=== PATIENT | male | born 1935 | race American Indian/Alaskan Native ===

== ENCOUNTER 2016-11-10 05:49 | Emergency (ER) | payer MEDICARE ==
[2016-11-10 06:51] LABS: Eosinophils % (Auto) 6.6 % (0.0-4.3); Hematocrit 37.9 % (35.5-45.6); Hemoglobin 12.3 gm/dl (11.8-15.2); Mean Corpuscular HGB Conc 33 % (32-34); Mean Corpuscular Hemoglobin 29 pg (28-32); Mean Corpuscular Volume 89 fl (84-94); Platelet Count 240 K/mm3 (140-440); Red Blood Count 4.25 M/mm3 (3.65-5.03); White Blood Count 6.2 K/mm3 (4.5-11.0)
[2016-11-10 07:13] LABS: Albumin 3.7 g/dL (3.9-5); Albumin/Globulin Ratio 1.1 %; BUN/Creatinine Ratio 11.87; Bilirubin,Total 0.3 mg/dL (0.1-1.2); Calcium 9.1 mg/dL (8.4-10.2); Chloride 105.3 mmol/L (98-107); Potassium 3.9 mmol/L (3.6-5.0); Total Protein 7.1 g/dL (6.3-8.2)
--- NOTE | 2016-11-10 07:35 | XRay Report ---
CHEST 2 VIEWS INDICATION: Cough, fever for 4 days with abdominal pain. COMPARISON: 06/01/2014 FINDINGS: PA and lateral chest radiographs demonstrate normal cardiomediastinal silhouette. Clear lungs. Osteopenia possible. Various bony degenerative changes. CONCLUSION: No acute disease, stable. Thank you for the opportunity to participate in this patient's care.
[2016-11-10] MEDS ORDERED: TYLENOL #3 PO ONE (10:05)
[2016-11-10] MEDS ORDERED: PROVENTIL IH ONE (10:05)
[2016-11-10] MEDS ORDERED: BENTYL IM ONE (10:05)
--- NOTE | 2016-11-10 10:06 | Emergency Department Report ---
ED General Adult HPI - General Chief complaint: Abdominal Pain Stated complaint: COUGH Time Seen by Provider: 11/10/16 09:52 Source: patient, RN notes reviewed, old records reviewed Mode of arrival: Ambulatory Limitations: No Limitations - History of Present Illness Initial comments: This is a 81-year-old male. He is previously unknown to me. Has a past medical history of renal insufficiency. The patient presents to the ER complaining of cough and mucus production. No fevers or chills. No chest pain or shortness of breath. The patient reports that he is coughing so much that he feels like he is told to abdominal wall muscle. He reports that he has chronic pain in his back and knee secondary to multiple orthopedic issues, and he takes chronic hydrocodone. He reports feeling constipated, he has no irritative or obstructive urinary symptoms. He reports subjective fever. To me he denies chest pain. He denies leg pain. Leg swelling. No recent trips greater than 4 hours. No recent hospital admissions. His abdominal pain increases with palpation and with coughing. It decreases with rest. It does not radiate anywhere. His cough is no exacerbating or relieving factors. -: Gradual Location: abdomen Quality: aching Improves with: rest Worsens with: movement Associated Symptoms: cough - Related Data Home Medications Medication Instructions Recorded Confirmed Last Taken amLODIPine [Norvasc] 10 mg PO DAILY 09/06/15 11/10/16 11/09/16 Atenolol [Tenormin] 25 mg PO DAILY 11/10/16 11/10/16 11/09/16 Previous Rx's Medication Instructions Recorded Last Taken Type Benzonatate [Tessalon Perles] 100 mg PO Q8HR PRN #30 capsule 11/10/16 Unknown Rx Dicyclomine [Bentyl] 10 mg PO QID PRN #20 capsule 11/10/16 Unknown Rx Fluticasone [Flonase] 1 spray NS QDAY #1 bottle 11/10/16 Unknown Rx Ipratropium [place] [Atrovent Hfa] 12.9 gm IH Q4HR #2 [email or web address] 11/10/16 Unknown Rx Allergies Allergy/AdvReac Type Severity Reaction Status Date / Time No Known Allergies Allergy Unverified 08/07/13 09:30 ED Review of Systems ROS: Stated complaint: COUGH Other details as noted in HPI ED Past Medical Hx - Past Medical History Previous Medical History?: Yes Hx Hypertension: Yes Hx Renal Disease: Yes Hx Arthritis: Yes - Surgical History Past Surgical History?: Yes Additional Surgical History: right knee replacement, left hip replacement, hernia repair - Social History Smoking Status: Never Smoker Substance Use Type: None - Medications Home Medications: Home Medications Medication Instructions Recorded Confirmed Last Taken Type amLODIPine [Norvasc] 10 mg PO DAILY 09/06/15 11/10/16 11/09/16 History Atenolol [Tenormin] 25 mg PO DAILY 11/10/16 11/10/16 11/09/16 History Benzonatate [Tessalon Perles] 100 mg PO Q8HR PRN #30 capsule 11/10/16 Unknown Rx Dicyclomine [Bentyl] 10 mg PO QID PRN #20 capsule 11/10/16 Unknown Rx Fluticasone [Flonase] 1 spray NS QDAY #1 bottle 11/10/16 Unknown Rx Ipratropium [place] [Atrovent Hfa] 12.9 gm IH Q4HR #2 [email or web address] 11/10/16 Unknown Rx ED Physical Exam - General Limitations: No Limitations General appearance: alert, in no apparent distress - Head Head exam: Present: atraumatic, normocephalic - Eye Eye exam: Present: normal appearance, EOMI. Absent: nystagmus - ENT ENT exam: Present: normal exam, normal orophraynx, mucous membranes moist, normal external ear exam - Neck Neck exam: Present: normal inspection, full ROM. Absent: tenderness, meningismus - Respiratory Respiratory exam: Present: normal lung sounds bilaterally. Absent: respiratory distress, wheezes, rales, rhonchi, stridor, chest wall tenderness, accessory muscle use, decreased breath sounds, prolonged expiratory - Cardiovascular Cardiovascular Exam: Present: regular rate, normal rhythm, normal heart sounds. Absent: bradycardia, tachycardia, irregular rhythm, systolic murmur, diastolic murmur, rubs, gallop - GI/Abdominal GI/Abdominal exam: Present: soft, normal bowel sounds. Absent: distended, tenderness, guarding, rebound, rigid, pulsatile mass - Rectal Rectal exam: Present: deferred - Extremities Exam Extremities exam: Present: normal inspection, full ROM, normal capillary refill. Absent: calf tenderness - Back Exam Back exam: Present: normal inspection, full ROM. Absent: tenderness, CVA tenderness (R), CVA tenderness (L), muscle spasm, paraspinal tenderness, vertebral tenderness - Neurological Exam Neurological exam: Present: alert, oriented X3, normal gait, other (Extraocular movements intact. Tongue midline. No facial droop. Facial sensation intact to light touch in the V1, V2, V3 distribution bilaterally. 5 and 5 strength in 4 extremities.. Sensation is intact to light touch in 4 extremities.). Absent : motor sensory deficit - Psychiatric Psychiatric exam: Present: normal affect, normal mood - Skin Skin exam: Present: warm, dry, intact, normal color. Absent: rash ED Course Vital Signs 11/10/16 11/10/16 11/10/16 06:13 09:44 09:50 Temperature 98.4 F Pulse Rate 67 75 Pulse Rate [ Anterior Right Throughout] Respiratory 16 19 18 Rate Respiratory Rate [Anterior Right Throughout] Blood Pressure 175/102 O2 Sat by Pulse 99 99 Oximetry 11/10/16 11/10/16 11/10/16 09:51 10:01 10:21 Temperature Pulse Rate 76 67 78 Pulse Rate [ Anterior Right Throughout] Respiratory 13 20 24 Rate Respiratory Rate [Anterior Right Throughout] Blood Pressure 152/68 159/87 152/68 O2 Sat by Pulse 99 100 98 Oximetry 11/10/16 11/10/16 11/10/16 10:31 10:41 10:51 Temperature Pulse Rate 72 69 70 Pulse Rate [ Anterior Right Throughout] Respiratory 16 20 21 Rate Respiratory Rate [Anterior Right Throughout] Blood Pressure 152/68 152/68 159/87 O2 Sat by Pulse 99 98 99 Oximetry 11/10/16 11/10/16 11:01 11:11 Temperature Pulse Rate 70 Pulse Rate [ 71 Anterior Right Throughout] Respiratory 21 Rate Respiratory 20 Rate [Anterior Right Throughout] Blood Pressure 150/86 O2 Sat by Pulse 100 Oximetry - Reevaluation(s) Reevaluation #1: 11/10/16 11:58 Differential diagnosis: Bronchitis, abdominal wall muscle sprain/strain, constipation, bowel obstruction assessment and plan: 81-year-old male with cough, and abdominal wall pain. The patient is afebrile with reassuring vital signs. His abdomen is soft and benign. To me he denies chest pain. There are no pulmonary embolus or DVT risk factors, he has low risk by well's criteria, his EKG is abnormal however does not demonstrate evidence of ST elevation mi He felt markedly improved symptomatically therapy, a CT scan of the abdomen and pelvis and straight in no acute disease or pathology, the patient reported improvement in his symptoms. He is suitable for discharge at this time, he will be instructed to follow-up with an outpatient primary care doctor. Return precautions were reviewed. ED Medical Decision Making - Lab Data Result diagrams: 11/10/16 06:25 11/10/16 06:25 Vital Signs 11/10/16 11/10/16 11/10/16 06:13 09:44 09:50 Temperature 98.4 F Pulse Rate 67 75 Pulse Rate [ Anterior Left Throughout] Pulse Rate [ Anterior Right Throughout] Respiratory 16 19 18 Rate Respiratory Rate [Anterior Left Throughout ] Respiratory Rate [Anterior Right Throughout] Blood Pressure 175/102 O2 Sat by Pulse 99 99 Oximetry 11/10/16 11/10/16 11/10/16 09:51 10:01 10:21 Temperature Pulse Rate 76 67 78 Pulse Rate [ Anterior Left Throughout] Pulse Rate [ Anterior Right Throughout] Respiratory 13 20 24 Rate Respiratory Rate [Anterior Left Throughout ] Respiratory Rate [Anterior Right Throughout] Blood Pressure 152/68 159/87 152/68 O2 Sat by Pulse 99 100 98 Oximetry 11/10/16 11/10/16 11/10/16 10:31 10:41 10:51 Temperature Pulse Rate 72 69 70 Pulse Rate [ Anterior Left Throughout] Pulse Rate [ Anterior Right Throughout] Respiratory 16 20 21 Rate Respiratory Rate [Anterior Left Throughout ] Respiratory Rate [Anterior Right Throughout] Blood Pressure 152/68 152/68 159/87 O2 Sat by Pulse 99 98 99 Oximetry 11/10/16 11/10/16 11/10/16 11:01 11:11 11:51 Temperature Pulse Rate 70 Pulse Rate [ 92 H Anterior Left Throughout] Pulse Rate [ 71 Anterior Right Throughout] Respiratory 21 Rate Respiratory 17 Rate [Anterior Left Throughout ] Respiratory 20 Rate [Anterior Right Throughout] Blood Pressure 150/86 O2 Sat by Pulse 100 Oximetry Lab Results 11/10/16 11/10/16 11/10/16 Range/Units 06:25 06:25 09:46 WBC 6.2 (4.5-11.0) K/mm3 RBC 4.25 (3.65-5.03) M/mm3 Hgb 12.3 (11.8-15.2) gm/dl Hct 37.9 (35.5-45.6) % MCV 89 (84-94) fl MCH 29 (28-32) pg MCHC 33 (32-34) % RDW 13.0 L (13.2-15.2) % Plt Count 240 (140-440) K/mm3 Lymph % (Auto) 30.4 (13.4-35.0) % Sanders % (Auto) 8.8 H (0.0-7.3) % Eos % (Auto) 6.6 H (0.0-4.3) % Baso % (Auto) 1.0 (0.0-1.8) % Lymph # 1.9 (1.2-5.4) K/mm3 Sanders # 0.5 (0.0-0.8) K/mm3 Eos # 0.4 (0.0-0.4) K/mm3 Baso # 0.1 (0.0-0.1) K/mm3 Seg Neutrophils % 53.2 (40.0-70.0) % Seg Neutrophils # 3.3 (1.8-7.7) K/mm3 Sodium 142 (137-145) mmol/L Potassium 3.9 (3.6-5.0) mmol/L Chloride 105.3 (98-107) mmol/L Carbon Dioxide 22 (22-30) mmol/L Anion Gap 19 mmol/L BUN 19 (9-20) mg/dL Creatinine 1.6 H (0.8-1.5) mg/dL Estimated GFR 51 ml/min BUN/Creatinine Ratio 11.87 % Glucose 103 H (75-100) mg/dL Calcium 9.1 (8.4-10.2) mg/dL Total Bilirubin 0.3 (0.1-1.2) mg/dL AST 18 (5-40) units/L ALT 11 (7-56) units/L Alkaline Phosphatase 98 (35-129) units/L Total Protein 7.1 (6.3-8.2) g/dL Albumin 3.7 L (3.9-5) g/dL Albumin/Globulin Ratio 1.1 % Urine Color Yellow (Yellow) Urine Turbidity Clear (Clear) Urine pH 5.0 (5.0-7.0) Ur Specific [place] 1.014 (1.003-1.030) Urine Protein <15 mg/dl (Negative) mg/dL Urine Glucose (UA) Neg (Negative) mg/dL Urine Ketones Neg (Negative) mg/dL Urine Blood Sm (Negative) Urine Nitrite Neg (Negative) Urine Bilirubin Neg (Negative) Urine Urobilinogen < 2.0 (<2.0) mg/dL Ur Leukocyte Esterase Neg (Negative) Urine WBC (Auto) < 1.0 (0.0-6.0) /HPF Urine RBC (Auto) 3.0 (0.0-6.0) /HPF Urine Bacteria (Auto) 1+ (Negative) /HPF Urine Mucus Few /HPF Renal insufficiency is chronic - EKG Data 11/10/16 12:00 Sinus arrhythmia, sinus, 70 bpm, first-degree AV block, intraventricular contractions and a pattern of bigeminy, QTC 454 ms, not consistent with STEMI, morphologically unchanged from prior EKG, bigeminy appears to be new. - Radiology Data Radiology results: report reviewed, image reviewed X-ray of the chest negative. Noncontrast CT the abdomen and pelvis negative for acute disease, DJD is noted, multiple incidental findings noted. Critical care attestation.: If time is entered above; I have spent that time in minutes in the direct care of this critically ill patient, excluding procedure time. ED Disposition Clinical Impression: Cough Disposition: DISCHARGED TO HOME OR SELFCARE Is pt being admited?: No Does the pt Need Aspirin: No Condition: Stable Instructions: Acute Bronchitis (ED) Additional Instructions: Take the medications as directed. Discontinue consumption of your narcotic medication. Discontinue consumption of NSAIDs/Mobic/Aleve/ibuprofen, unless your primary care doctor or nephrology specialist specifically instructed you that it is safe to do so. Take acetaminophen every 4-6 hours as needed for pain. Follow-up with your primary care doctor within the next week. Please note that CT scan demonstrated multiple incidental findings which are not emergent, but should be followed up by your primary care doctor. There is a nonspecific nodule noted on the right adrenal gland which should be followed up by her primary care doctor. Please have your primary care doctor contact the medical records department to obtain a copy of her CT scan report. Not having a primary care doctor follow-up on these incidental findings may result in undiagnosed tumor/cancer/malignancy. Take the pain medication, nausea medication, cough medication as directed. Return to the ER right away with new pain, worsened pain, migration of pain, fevers or chills, nausea or vomiting, inability to tolerate liquid feeds. Referrals: PRIMARY CARE, [Primary Care Provider] - 3-5 Days YAN RUANO MD [Staff Physician] - 3-5 Days ALEXIS ACE MD [Staff Physician] - 3-5 Days
[2016-11-10 10:14] LABS: Bacteria,Urine 1+ /HPF (Negative); Bilirubin,Urine NEG (Negative); Blood,Urine SM (Negative); Ketones,Urine NEG (Negative); Leukocyte Esterase,Urine NEG (Negative); Mucus,Urine FEW /HPF; Nitrite,Urine NEG (Negative); Protein,Urine <15 mg/dL mg/dL (Negative); Urobilinogen,Urine < 2.0 mg/dL (<2.0)
[2016-11-10 10:15] LABS: WBC,Urine < 1.0 /HPF (0.0-6.0)
--- NOTE | 2016-11-10 11:41 | Cat Scan Report ---
CT ABDOMEN AND PELVIS WITHOUT CONTRAST INDICATION: Abdominal pain, cough. COMPARISON: 02/07/2012 FINDINGS: Noncontrast abdomen and pelvis CT performed. LUNG BASES: Top normal heart size. Few coronary calcifications. No effusions. Approximately 3 cm hiatal hernia and/or gastroesophageal reflux, amongst others. ABDOMEN: Please note that sensitivity to detect small visceral lesions is limited due to the absence of intravenous or oral contrast. Approximately 7 mm stable left hepatic dome hypodensity, axial image 7, series 2. Multiple bilateral renal hypodensities/cysts, largest 4.6 cm at the left lower renal pole with mild overlying fatty cortical indentation, axial image 37, series 2. Some of these are stable while few others as in the upper to mid renal aspects bilaterally may be new or larger. Otherwise grossly unremarkable unenhanced liver, spleen, gallbladder, pancreas, left adrenal, nonaneurysmal abdominal aorta with mild atherosclerotic calcifications, IVC and kidneys. Approximately 1 cm right adrenal fullness/nodule may again be present. No ascites or definite size significant adenopathy. Nonopacified GI tract evaluation limited, though grossly nonobstructive. Mild ascending and transverse colon stool. PELVIS: Streak artifact from replaced left hip again limits exam. Few pelvic vascular calcifications. Grossly unremarkable non-opacified urinary bladder and the rectosigmoid. Tiny prostatic calcification. No significant free fluid. Stable prior possible right inguinal surgery. Largest right inguinal lymph node again measures 3 x 1 cm, axial image 74. Increased lumbar spondylosis with multilevel vacuum disc phenomena, greatest change seen at L3-L4 with severe disc narrowing and adjacent endplate irregularity. Severe L4-L5 disc narrowing with vacuum phenomenon again noted. Mild remainder upper lumbar and some lower thoracic vacuum disc changes as well. Bilateral SI joint degenerative bridging. CONCLUSION: 1. Interval progression of multilevel lumbar spondylosis, as described. 2. No other significant interval change on this limited, unenhanced exam with various incidental findings, including distal esophageal thickening, renal cysts and replaced left hip, amongst others, as above. Thank you for the opportunity to participate in this patient's care.
[2016-11-10 12:19] VITALS: BP 146/78
== END 2016-11-10 12:18 | disposition home or self-care (01) ==
LOC: ED 05:49
DX: R05 Cough (principal); I10 Essential (primary) hypertension; M19.90 Unspecified osteoarthritis, unspecified site
CPT/HCPCS: 36415; 71020; 74176; 80053; 81001; 85025; 93005; 93010; 94644; 96372; 99285; J0500

== ENCOUNTER 2017-08-07 02:33 | Emergency (ER) | payer MEDICARE ==
[2017-08-07 02:44] VITALS: BP 142/82
[2017-08-07 05:10] LABS: Basophils # (Auto) 0.1 K/mm3 (0.0-0.1); Basophils % (Auto) 1.1 % (0.0-1.8); Eosinophils # (Auto) 0.6 K/mm3 (0.0-0.4); Eosinophils % (Auto) 8.6 % (0.0-4.3); Hematocrit 39.1 % (35.5-45.6); Hemoglobin 12.9 gm/dl (11.8-15.2); Lymphocytes # (Auto) 1.7 K/mm3 (1.2-5.4); Lymphocytes % (Auto) 23.5 % (13.4-35.0); Mean Corpuscular HGB Conc 33 % (32-34); Mean Corpuscular Hemoglobin 30 pg (28-32); Mean Corpuscular Volume 90 fl (84-94); Monocytes # (Auto) 0.6 K/mm3 (0.0-0.8); Monocytes % (Auto) 7.8 % (0.0-7.3); Platelet Count 295 K/mm3 (140-440); Red Blood Count 4.36 M/mm3 (3.65-5.03); Red Cell Distribution Width 14.3 % (13.2-15.2)
[2017-08-07 07:09] LABS: BUN/Creatinine Ratio 14; Blood Urea Nitrogen 18 mg/dL (9-20); Calcium 8.9 mg/dL (8.4-10.2); Hemolysis Index 23
== END 2017-08-07 14:15 | disposition left against medical advice (07) ==
LOC: ED 02:33
DX: R42 Dizziness and giddiness (principal); Z53.21 Procedure and treatment not carried out due to patient leaving prior to being seen by health care provider
CPT/HCPCS: 36415; 80048; 85025; 93005; 93010

== ENCOUNTER 2017-08-13 23:46 | Emergency (ER) | payer MEDICARE ==
[2017-08-14] MEDS ORDERED: ASPIRIN PO ONE (02:04)
[2017-08-14 03:36] LABS: Basophils # (Auto) 0.1 K/mm3 (0.0-0.1); Basophils % (Auto) 1.4 % (0.0-1.8); Eosinophils # (Auto) 0.6 K/mm3 (0.0-0.4); Eosinophils % (Auto) 7.3 % (0.0-4.3); Hematocrit 38.4 % (35.5-45.6); Hemoglobin 12.5 gm/dl (11.8-15.2); Lymphocytes # (Auto) 1.9 K/mm3 (1.2-5.4); Lymphocytes % (Auto) 23.4 % (13.4-35.0); Mean Corpuscular HGB Conc 33 % (32-34); Mean Corpuscular Hemoglobin 30 pg (28-32); Mean Corpuscular Volume 91 fl (84-94); Monocytes # (Auto) 0.5 K/mm3 (0.0-0.8); Monocytes % (Auto) 6.9 % (0.0-7.3); Platelet Count 260 K/mm3 (140-440); Red Blood Count 4.22 M/mm3 (3.65-5.03); Red Cell Distribution Width 14.5 % (13.2-15.2)
[2017-08-14 03:50] LABS: INR 1.01 (0.87-1.13)
[2017-08-14 03:51] LABS: Partial Thromboplastin Time 32.6 Sec. (24.2-36.6)
[2017-08-14 03:51] LABS: BUN/Creatinine Ratio 17; Blood Urea Nitrogen 19 mg/dL (9-20); Calcium 8.8 mg/dL (8.4-10.2); Hemolysis Index 8
--- NOTE | 2017-08-14 03:52 | Emergency Department Report ---
HPI - General Chief Complaint: Dizziness Time Seen by Provider: 08/14/17 03:04 - HPI HPI: This is a 82-year-old male presents to the emergency department by EMS from home with a complaint of some dizziness. He says that he has been having it intermittently over the past few weeks. He denies that the room is spinning or any vertigo like symptoms but says it feels as if he is unbalanced and would fall. He has not taken anything for his symptoms prior presentation. He denies any headache, vision change, shortness of breath, nausea, vomiting or fever. He has a past medical history of arthritis, CHF, hypertension, renal sufficiency and has a previous history of pulmonary embolism back in 2013. He has a surgical history of right knee replacement, left hip replacement and hernia repair. His primary care physician is Dr. Chang Murguia but he has not seen them regarding his symptoms. No recent travel or sick contacts at home. ED Past Medical Hx - Past Medical History Previous Medical History?: Yes Hx Hypertension: Yes Hx Congestive Heart Failure: Yes Hx Pulmonary Embolism: Yes Hx Renal Disease: Yes Hx Arthritis: Yes - Surgical History Past Surgical History?: Yes Additional Surgical History: right knee replacement, left hip replacement, hernia repair - Social History Smoking Status: Never Smoker Substance Use Type: None - Medications Home Medications: Home Medications Medication Instructions Recorded Confirmed Last Taken Type Atenolol [Tenormin] 25 mg PO DAILY #30 tablet 07/25/17 08/07/17 Unknown Rx Atorvastatin [Lipitor] 40 mg PO QHS #30 tablet 07/25/17 08/07/17 Unknown Rx amLODIPine [Norvasc] 10 mg PO DAILY #30 tablet 07/25/17 08/07/17 Unknown Rx Furosemide [Lasix TAB] 20 mg PO QDAY 08/07/17 08/07/17 Unknown History ED Review of Systems ROS: Stated complaint: DIZZINESS Other details as noted in HPI Comment: All other systems reviewed and negative Constitutional: denies: chills, fever Eyes: denies: eye pain, eye discharge, vision change ENT: denies: ear pain, throat pain Respiratory: denies: cough, shortness of breath, wheezing Cardiovascular: denies: chest pain, palpitations Gastrointestinal: denies: abdominal pain, nausea, diarrhea Genitourinary: denies: urgency, dysuria Musculoskeletal: denies: back pain, joint swelling, arthralgia Skin: denies: rash, lesions Neurological: other (dizziness). denies: headache Physical Exam - Physical Exam Physical Exam: GENERAL: The patient is well-developed well-nourished. HENT: Normocephalic. Atraumatic. Patient has moist mucous membranes. EYES: Extraocular motions are intact. Pupils equal reactive to light bilaterally. No nystagmus. NECK: Supple. Trachea is midline. CHEST/LUNGS: Clear to auscultation. There is no respiratory distress noted. HEART/CARDIOVASCULAR: Regular. There is no tachycardia. There is no murmur. ABDOMEN: Abdomen is soft, nontender. Patient has normal bowel sounds. There is no abdominal distention. SKIN: Skin is warm and dry. NEURO: The patient is awake, alert, and oriented. The patient is cooperative. The patient has no focal neurologic deficits. The patient has normal speech and gait. Cranial nerves II through XII grossly intact. No pronator drift. No dysmetria. MUSCULOSKELETAL: There is no tenderness or deformity. There is no limitation range of motion. There is no evidence of acute injury. Muscle strength 5 out of 5 in upper and lower extremity bilaterally. ED Medical Decision Making - Lab Data Result diagrams: 08/14/17 03:06 08/14/17 03:06 - EKG Data -: EKG Interpreted by Nm EKG shows normal: sinus rhythm (with ventricular bigeminy), axis, intervals ( prolonged TN interval), QRS complexes, ST-T waves Rate: normal - EKG Data When compared to previous EKG there are: changes noted (previous EKG did not have ventricular bigeminy or prolonged TN interval) Interpretation: other (sinus rhythm, ventricular bigeminy, prolonged TN interval. No ST elevation AR) - Radiology Data Radiology results: report reviewed EXAM: CT HEAD/BRAIN WO CON HISTORY: Dizziness TECHNIQUE: Routine axial imaging was obtained of the brain without IV contrast. There are no previous studies available for comparison FINDINGS: There is age related volume loss. There are small bilateral chronic subdural effusions overlying the frontal lobes without mass effect. There is no evidence of acute stroke or hemorrhage. The ventricular system is appropriate in size and is symmetric. The visualized sinuses are clear. 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 No evidence of acute stroke or hemorrhage. Transcribed By: DEWAYNE Dictated By: LORENZO ROMERO MD Electronically Authenticated By: LORENZO ROMERO MD Signed Date/Time: 08/13/17 9139 - Medical Decision Making Patient presents with a complaint of some dizziness that has been going on intermittently but chronically, for at least the past month or so. On physical examination he does not have any focal, motor or sensory deficits and his cranial nerves are intact. Labs and an unremarkable including no leukocytosis, electrolyte abnormalities, renal insufficiency, glucose abnormalities and he had a negative troponin and normal thyroid function. His EKG did not show any signs of ST elevation AR, ischemia or significant dysrhythmia. There was some ventricular bigeminy. There was a prolonged TN interval but the patient does not have any bradycardia. CT of the head showed some age-related volume loss with some chronic bifrontal subdural effusions without mass effect but no evidence of acute stroke or hemorrhage. We tested the patient's ambulation multiple times and the patient walks without any instability and it does not cause any dizziness. Patient was reevaluated multiple times and currently is asymptomatic. He has good follow-up with his primary care physician, Dr. Murguia. He has been encouraged to follow up with them in the next few days without fail but to return to the emergency Department with any worsening of his symptoms or any acute distress. Vital signs stable including being afebrile. He understands and agrees to the plan. - Differential Diagnosis vertigo, dysrhythmia, thyroid dysfunction, TIA Critical Care Time: No Critical care attestation.: If time is entered above; I have spent that time in minutes in the direct care of this critically ill patient, excluding procedure time. ED Disposition Clinical Impression: Dizziness Hypertension Qualifiers: Hypertension type: essential hypertension Qualified Code(s): I10 - Essential ( primary) hypertension Disposition: DC-01 TO HOME OR SELFCARE Is pt being admited?: No Condition: Stable Instructions: Hypertension (ED), Lightheadedness (ED), Dizziness (ED) Additional Instructions: Please follow up with Dr. Murguia in the next few days. Return to the emergency Department with any worsening of your symptoms or any acute distress. Referrals: CHANG MURGUIA MD [Staff Physician] - [facility] Time of Disposition: 04:50
[2017-08-14 05:10] VITALS: BP 152/86
== END 2017-08-14 05:05 | disposition home or self-care (01) ==
LOC: ED 23:46
DX: R42 Dizziness and giddiness (principal); I10 Essential (primary) hypertension; I50.9 Heart failure, unspecified; M19.90 Unspecified osteoarthritis, unspecified site; I26.99 Other pulmonary embolism without acute cor pulmonale
CPT/HCPCS: 36415; 70450; 80048; 84443; 84484; 85025; 85610; 85730; 93005; 93010

== ENCOUNTER 2017-10-22 19:59 | Emergency (ER) | payer MEDICARE ==
[2017-10-22 20:39] LABS: Hematocrit 38.4 % (35.5-45.6); Hemoglobin 12.1 gm/dl (11.8-15.2); Mean Corpuscular HGB Conc 32 % (32-34); Mean Corpuscular Hemoglobin 29 pg (28-32); Mean Corpuscular Volume 91 fl (84-94); Platelet Count 300 K/mm3 (140-440); Red Blood Count 4.24 M/mm3 (3.65-5.03); Red Cell Distribution Width 15.3 % (13.2-15.2)
[2017-10-22 21:01] LABS: Albumin 3.9 g/dL (3.9-5)
[2017-10-22 21:24] LABS: Bilirubin,Urine NEG (Negative); Blood,Urine SM (Negative); Color,Urine Yellow (Yellow); Mucus,Urine FEW /HPF; Protein,Urine <15 mg/dL mg/dL (Negative); Urobilinogen,Urine < 2.0 mg/dL (<2.0)
[2017-10-22 21:33] LABS: WBC,Urine < 1.0 /HPF (0.0-6.0)
[2017-10-23] MEDS ORDERED: LASIX PO ONE (03:08)
[2017-10-23] MEDS ORDERED: ULTRAM PO ONE (03:51)
--- NOTE | 2017-10-23 03:55 | Emergency Department Report ---
HPI - General Chief Complaint: Extremity Injury, Lower Time Seen by Provider: 10/23/17 03:31 - HPI HPI: The patient is a 82-year-old male with a history of congestive heart failure because of the lower leg swelling and pain, presents for evaluation recurrence of pain and swelling to the bilateral lower legs. The patient reports one month of constant swelling and pain to the legs distal legs diffusely, moderate in severity, pressure-like in quality, exacerbated with ambulation or weightbearing. He shares that he did not follow-up with cardiology outpatient. The patient denies fever, neck pain, parasthesias, chest pain, dyspnea, cough, hemoptysis, palpitations, dizziness, syncope, unilateral leg swelling, calf muscle pain recent immobilization. ED Past Medical Hx - Past Medical History Hx Hypertension: Yes Hx Congestive Heart Failure: Yes Hx Pulmonary Embolism: Yes Hx Renal Disease: Yes Hx Arthritis: Yes - Surgical History Additional Surgical History: right knee replacement, left hip replacement, hernia repair - Social History Smoking Status: Unknown if ever smoked Substance Use Type: None - Medications Home Medications: Home Medications Medication Instructions Recorded Confirmed Last Taken Type Atenolol [Tenormin] 25 mg PO DAILY #30 tablet 07/25/17 08/07/17 Unknown Rx Atorvastatin [Lipitor] 40 mg PO QHS #30 tablet 07/25/17 08/07/17 Unknown Rx amLODIPine [Norvasc] 10 mg PO DAILY #30 tablet 07/25/17 08/07/17 Unknown Rx Furosemide [Lasix TAB] 20 mg PO QDAY #30 tablet 10/23/17 Unknown Rx traMADol [Ultram 50 MG tab] 50 mg PO Q6HR PRN #12 tablet 10/23/17 Unknown Rx ED Review of Systems ROS: Stated complaint: BILATERAL LEG SWELLING Other details as noted in HPI Constitutional: denies: fever ENT: denies: throat or neck pain Respiratory: denies: cough, shortness of breath Cardiovascular: denies: chest pain Endocrine: denies unexplained weight loss or gain Gastrointestinal: denies: abdominal pain, nausea Genitourinary: denies: dysuria Musculoskeletal: reports: leg swelling and pain Skin: denies: rash Neurological: denies: headache Hematological/Lymphatic: denies: easy bleeding or easy bruising Psych: denies sadness or hopelessness Physical Exam - Physical Exam Vital Signs: Vital Signs 10/22/17 10/23/17 10/23/17 20:14 03:19 03:36 Temperature 99 F 98.9 F Pulse Rate 80 78 Respiratory 18 20 20 Rate Blood Pressure 138/71 Blood Pressure 159/85 [Left] O2 Sat by Pulse 100 99 98 Oximetry Physical Exam: General: well-nourished, well-developed, no acute distress Head: Normocephalic, atraumatic Eyes: normal sclera ENT: Mucous membranes are pink and moist Neck: trachea midline, neck supple, No neck stiffness, no cervical adenopathy Respiratory: Breath sounds equal bilaterally, no wheezing, rales, or rhonchi Cardio: S1 and S2 present, no murmurs, rubs, gallops, capillary refill is brisk Abdomen: Normoactive bowel sounds, soft tenderness Musc: 1+ pitting edema of bilateral lower legs, circumferential tenderness to palpation present bilaterally, circumferential hyperpigmentation and mild redness to the lower legs present as well, consistent with stasis dermatitis Skin: No rash Neuro: no facial drooping, normal speech Psych: Normal affect ED Course Vital Signs 10/22/17 10/23/17 10/23/17 20:14 03:19 03:36 Temperature 99 F 98.9 F Pulse Rate 80 78 Respiratory 18 20 20 Rate Blood Pressure 138/71 Blood Pressure 159/85 [Left] O2 Sat by Pulse 100 99 98 Oximetry ED Medical Decision Making - Lab Data Result diagrams: 10/22/17 20:22 10/22/17 20:22 - Medical Decision Making The patient was seen and examined by myself. The patient is placed on a surveillance system monitor and continuous pulse ox. On initial evaluation, the patient was found to be in no distress. Evaluation orders were placed. Findings of exam are consistent with stasis dermatitis. The patient given pain medicine and Lasix for treatment of leg swelling. Lab results revealed elevated BNP and otherwise were unremarkable including normal WBC. The patient was reevaluated and reported that their symptoms were markedly improved. The patient is stable for discharge with outpatient follow-up. The patient is given follow-up and return instructions. The patient expressed understanding and agreed with the plan. The patient is discharged in stable condition. Critical care attestation.: If time is entered above; I have spent that time in minutes in the direct care of this critically ill patient, excluding procedure time. ED Disposition Clinical Impression: Acute venous stasis dermatitis of both legs, Bilateral lower extremity pain, Localized swelling of both lower legs Disposition: TO HOME OR SELFCARE Is pt being admited?: No Does the pt Need Aspirin: No Condition: Stable Instructions: Leg Edema (ED), Musculoskeletal Pain (ED), Heart Failure (ED) Prescriptions: Furosemide [Lasix TAB] 20 mg PO QDAY #30 tablet traMADol [Ultram 50 MG tab] 50 mg PO Q6HR PRN #12 tablet PRN Reason: Pain Referrals: YAZ MURGUIA MD [Primary Care Provider] - 3-5 Days PAULO ZALDIVAR MD [Staff Physician] - 3-5 Days Time of Disposition: 03:51
[2017-10-23] MEDS ORDERED: TYLENOL PO ONE (04:05)
[2017-10-23 06:07] VITALS: BP 148/88
== END 2017-10-23 05:03 | disposition home or self-care (01) ==
LOC: ED 19:59
DX: R60.0 Localized edema (principal); I13.0 Hypertensive heart and chronic kidney disease with heart failure and stage 1 through stage 4 chronic kidney disease, or unspecified chronic kidney disease; N18.9 Chronic kidney disease, unspecified; M19.90 Unspecified osteoarthritis, unspecified site; Z86.711 Personal history of pulmonary embolism; Z96.651 Presence of right artificial knee joint; Z96.642 Presence of left artificial hip joint
CPT/HCPCS: 36415; 80053; 81001; 83880; 85027; 93005; 93010; 99283

== ENCOUNTER 2018-01-16 08:56 | Inpatient (IN) | payer MEDICARE ==
[2018-01-16] MEDS ORDERED: ATROVENT IH ONE ×2 (09:18→09:26)
[2018-01-16] MEDS ORDERED: PROVENTIL IH ONE ×2 (09:18→09:25)
--- NOTE | 2018-01-16 09:33 | XRay Report ---
AP CHEST: HISTORY: Difficulty in breathing AP view of the chest demonstrates a normal mediastinal and cardiac contour with clear lungs and normal bony and soft tissue structures. IMPRESSION: Unremarkable AP chest.
[2018-01-16 10:05] LABS: Creatine Kinase MB 6.4 ng/mL (0.0-4.0)
[2018-01-16 10:07] LABS: Calcium 9.2 mg/dL (8.4-10.2)
[2018-01-16 10:10] LABS: Alanine Aminotransferase 10 units/L (7-56); Albumin 3.8 g/dL (3.9-5)
[2018-01-16 10:11] LABS: Bilirubin,Direct < 0.2 mg/dL (0-0.2)
[2018-01-16 10:21] LABS: Basophils # (Auto) 0.1 K/mm3 (0.0-0.1); Basophils % (Auto) 1.1 % (0.0-1.8); Eosinophils # (Auto) 0.6 K/mm3 (0.0-0.4); Eosinophils % (Auto) 8.6 % (0.0-4.3); Hematocrit 37.8 % (35.5-45.6); Hemoglobin 12.3 gm/dl (11.8-15.2); Lymphocytes # (Auto) 1.7 K/mm3 (1.2-5.4); Lymphocytes % (Auto) 23.8 % (13.4-35.0); Mean Corpuscular HGB Conc 33 % (32-34); Mean Corpuscular Hemoglobin 30 pg (28-32); Mean Corpuscular Volume 93 fl (84-94); Monocytes # (Auto) 0.5 K/mm3 (0.0-0.8); Monocytes % (Auto) 7.3 % (0.0-7.3); Platelet Count 271 K/mm3 (140-440); Red Blood Count 4.06 M/mm3 (3.65-5.03)
[2018-01-16] MEDS ORDERED: MAGNESIUM SULFATE 2GM/50ML 2 GM/50 ML BAG IV ONE (10:25)
[2018-01-16 10:32] LABS: INR 1.05 (0.87-1.13)
[2018-01-16 10:33] LABS: Partial Thromboplastin Time 28.9 Sec. (24.2-36.6)
[2018-01-16] MEDS ORDERED: DUONEB *Not for PRN Use IH ONE ×2 (12:36→12:46)
--- NOTE | 2018-01-16 12:49 | Emergency Department Report ---
ED General Adult HPI - General Chief complaint: Dyspnea/Respdistress Stated complaint: COLD/WHEEZING Time Seen by Provider: 01/16/18 09:16 Source: patient Mode of arrival: Ambulatory Limitations: No Limitations - History of Present Illness Initial comments: This is an 82-year-old male that states he's had difficulty breathing for 2 weeks. He arrives in respiratory distress and is found to be wheezing. He states he has chronic leg swelling. He has had a nonproductive cough. He has not measured his temperature but does not refer fever or chills. He states that he has never been treated for asthma or COPD with nebulized therapy. Patient has been admitted to this facility before in July 2007. He may have had a somewhat similar presentation. He has some degree of diastolic dysfunction but no systolic decompensation. At that time he had a CTA which was read as negative except for the presence of probable chronic lung disease. A nuclear medicine study was also done at that time which was negative as well. The patient denies chest pain pressure or tightness. He's had no recent travel. -: week(s) Associated Symptoms: denies other symptoms - Related Data Previous Rx's Medication Instructions Recorded Last Taken Type Atenolol [Tenormin] 25 mg PO DAILY #30 tablet 07/25/17 Unknown Rx Atorvastatin [Lipitor] 40 mg PO QHS #30 tablet 07/25/17 Unknown Rx amLODIPine [Norvasc] 10 mg PO DAILY #30 tablet 07/25/17 Unknown Rx Furosemide [Lasix TAB] 20 mg PO QDAY #30 tablet 10/23/17 Unknown Rx traMADol [Ultram 50 MG tab] 50 mg PO Q6HR PRN #12 tablet 10/23/17 Unknown Rx Allergies Allergy/AdvReac Type Severity Reaction Status Date / Time No Known Allergies Allergy Verified 08/14/17 01:58 ED Review of Systems ROS: Stated complaint: COLD/WHEEZING Other details as noted in HPI Constitutional: denies: chills, fever Eyes: denies: eye pain, eye discharge, vision change ENT: denies: ear pain, throat pain Respiratory: see HPI, cough, shortness of breath, wheezing Cardiovascular: denies: chest pain, palpitations Endocrine: no symptoms reported Gastrointestinal: denies: abdominal pain, nausea, diarrhea Genitourinary: denies: urgency, dysuria Musculoskeletal: denies: back pain, joint swelling, arthralgia Skin: denies: rash, lesions Neurological: denies: headache, weakness, paresthesias Psychiatric: denies: anxiety, depression Hematological/Lymphatic: denies: easy bleeding, easy bruising ED Past Medical Hx - Past Medical History Hx Hypertension: Yes Hx Congestive Heart Failure: Yes Hx Pulmonary Embolism: Yes Hx Renal Disease: Yes Hx Arthritis: Yes - Surgical History Past Surgical History?: Yes Additional Surgical History: right knee replacement, left hip replacement, hernia repair - Social History Smoking Status: Never Smoker Substance Use Type: None - Medications Home Medications: Home Medications Medication Instructions Recorded Confirmed Last Taken Type Atenolol [Tenormin] 25 mg PO DAILY #30 tablet 07/25/17 08/07/17 Unknown Rx Atorvastatin [Lipitor] 40 mg PO QHS #30 tablet 07/25/17 08/07/17 Unknown Rx amLODIPine [Norvasc] 10 mg PO DAILY #30 tablet 07/25/17 08/07/17 Unknown Rx Furosemide [Lasix TAB] 20 mg PO QDAY #30 tablet 10/23/17 Unknown Rx traMADol [Ultram 50 MG tab] 50 mg PO Q6HR PRN #12 tablet 10/23/17 Unknown Rx ED Physical Exam - General Limitations: No Limitations General appearance: alert, in no apparent distress - Head Head exam: Present: atraumatic, normocephalic - Eye Eye exam: Present: normal appearance. Absent: scleral icterus - ENT ENT exam: Present: mucous membranes moist - Neck Neck exam: Present: normal inspection. Absent: tenderness, meningismus - Respiratory Respiratory exam: Present: wheezes, accessory muscle use, prolonged expiratory. Absent: respiratory distress - Cardiovascular Cardiovascular Exam: Present: regular rate, normal rhythm. Absent: systolic murmur, diastolic murmur, rubs, gallop - GI/Abdominal GI/Abdominal exam: Present: soft, normal bowel sounds. Absent: distended, tenderness, guarding, rebound, rigid - Rectal Rectal exam: Present: deferred - Extremities Exam Extremities exam: Present: pedal edema (bilateral ankle edema somewhat brawny) - Back Exam Back exam: Present: normal inspection. Absent: CVA tenderness (R), CVA tenderness (L) - Neurological Exam Neurological exam: Present: alert, oriented X3, CN II-XII intact. Absent: motor sensory deficit - Psychiatric Psychiatric exam: Present: normal affect, normal mood - Skin Skin exam: Present: warm, dry, intact, other (some postinflammatory changes of the lower extremities). Absent: rash ED Course Vital Signs 01/16/18 01/16/18 01/16/18 09:06 09:10 09:30 Temperature 97.8 F Pulse Rate 85 75 66 Respiratory 24 32 H 22 Rate Blood Pressure 130/88 125/63 O2 Sat by Pulse 97 94 96 Oximetry 01/16/18 01/16/18 01/16/18 10:00 10:30 11:01 Temperature Pulse Rate 65 58 L 73 Respiratory 25 H 23 26 H Rate Blood Pressure 130/71 113/59 132/66 O2 Sat by Pulse 94 95 93 Oximetry - Reevaluation(s) Reevaluation #1: The patient had a clear benefit from nebulized treatment, steroids and magnesium. He has a pulse oximetry of 97% on room air. He still is a bit tachypnea with wheezing. 2 do nebs were ordered. His d-dimer was noted to be over 800. His creatinine is 1.4. I have ordered a nuclear medicine study. The previous one and very was negative. 01/16/18 12:47 01/16/18 12:49 According to the patient's previous discharge summary by Dr. Shannon he has a history of pulmonary embolism but is not on anticoagulants. I do believe the patient is not compliant with all his medicine. It appears that his respiratory distress is more a function of his COPD exacerbation and diastolic dysfunction. I will leave the management of his cardiac status to the hospitalist which will be Dr. Fernandez. Further care and evaluation per hospitalist team. ED Medical Decision Making - Lab Data Result diagrams: 01/16/18 09:28 01/16/18 09:28 Laboratory Results - last 24 hr 01/16/18 01/16/18 01/16/18 09:28 09:28 09:28 WBC 7.3 RBC 4.06 Hgb 12.3 Hct 37.8 MCV 93 MCH 30 MCHC 33 RDW 15.0 Plt Count 271 Lymph % (Auto) 23.8 [place] % (Auto) 7.3 Eos % (Auto) 8.6 H Baso % (Auto) 1.1 Lymph # 1.7 Monroe # 0.5 Eos # 0.6 H Baso # 0.1 Seg Neutrophils % 59.2 Seg Neutrophils # 4.3 PT 14.2 INR 1.05 APTT 28.9 D-Dimer 827.61 H Sodium 143 Potassium 4.7 Chloride 104.9 Carbon Dioxide 23 Anion Gap 20 BUN 22 H Creatinine 1.4 Estimated GFR 59 BUN/Creatinine Ratio 16 Glucose 139 H Calcium 9.2 Magnesium Total Bilirubin Direct Bilirubin AST ALT Alkaline Phosphatase Total Creatine Kinase CK-MB (CK-2) CK-MB (CK-2) Rel Index Troponin T NT-Pro-B Natriuret Pep 630.7 Total Protein Albumin Albumin/Globulin Ratio 01/16/18 01/16/18 09:28 09:28 WBC RBC Hgb Hct MCV MCH MCHC RDW Plt Count Lymph % (Auto) Monroe % (Auto) Eos % (Auto) Baso % (Auto) Lymph # Monroe # Eos # Baso # Seg Neutrophils % Seg Neutrophils # PT INR APTT D-Dimer Sodium Potassium Chloride Carbon Dioxide Anion Gap BUN Creatinine Estimated GFR BUN/Creatinine Ratio Glucose Calcium Magnesium 2.20 Total Bilirubin 0.50 Direct Bilirubin < 0.2 AST 22 ALT 10 Alkaline Phosphatase 149 H Total Creatine Kinase 227 H CK-MB (CK-2) 6.4 H CK-MB (CK-2) Rel Index 2.8 Troponin T < 0.010 NT-Pro-B Natriuret Pep Total Protein 7.0 Albumin 3.8 L Albumin/Globulin Ratio 1.2 - EKG Data -: EKG Interpreted by Me EKG shows normal: sinus rhythm, axis, intervals, QRS complexes, ST-T waves Rate: normal - EKG Data Interpretation: nonspecific ST-T wave eryn - Radiology Data interpreted by me: Chest x-ray no acute process Critical Care Time: Yes Critical care time in (mins) excluding proc time.: 45 Critical care attestation.: If time is entered above; I have spent that time in minutes in the direct care of this critically ill patient, excluding procedure time. ED Disposition Clinical Impression: Respiratory distress, COPD exacerbation, Diastolic dysfunction, Elevated d- dimer Chronic renal insufficiency Qualifiers: Chronic kidney disease stage: stage 1 Qualified Code(s): N28.9 - Disorder of kidney and ureter, unspecified Disposition: OP ADMIT IP TO THIS HOSP Is pt being admited?: Yes Does the pt Need Aspirin: Yes Condition: Stable Instructions: Chronic Obstructive Pulmonary Disease (ED) Referrals: PRIMARY CARE, [Primary Care Provider] - 3-5 Days Time of Disposition: 12:52
[2018-01-16] MEDS ORDERED: BABY ASPIRIN PO ONE (12:53)
[2018-01-16] MEDS ORDERED: ROBITUSSIN AC PO PRN (13:12)
[2018-01-16] MEDS ORDERED: REGLAN IV PRN (13:13)
[2018-01-16] MEDS ORDERED: TYLENOL PO PRN (13:13)
[2018-01-16] MEDS ORDERED: PULMICORT IH ONE (13:14)
[2018-01-16] MEDS ORDERED: MUCINEX ER PO ONE (13:22)
[2018-01-16] MEDS ORDERED: BABY ASPIRIN ONE (13:22)
--- NOTE | 2018-01-16 13:26 | History and Physical Report ---
History of Present Illness Date of examination: 01/16/18 Chief complaint: SOB History of present illness: Mr. Johnson is a 82 yo man with a history of hypertension, OA, asthma, radiographic (on prior v/q scan) COPD (pt denies copd and he says smoked), CKD 3 baseline around 1.4 and provoked PE after surgery treated with Xarelto who presents with progressive worsen constant severe SOB with activity x 2-3 weeks. He decided to come to the [facility] ED because of severe constant cough, which was nonproductive but now productive of greyish sputum. The cough is so bad he regurgitated. He denies ever having chest pains. His PCP is Dr. Chang Augustin, whom he reports sees about 3 weeks ago and was given unspecified medication which helped. He denies fever, chills, abd pains, sore throat. PMH: as hpi, he denies CHF, also bilateral leg short PSH: right knee replacement, left hip replacement, hernia repair SH: denies ever smoking, no alcholol abuse, no illegal drugs FH: mother had dm, hypertension, chf, son had AMI at 51 ROS: Constitutional: denies: fever ENT: denies: throat or neck pain Respiratory: + cough, shortness of breath Cardiovascular: denies: chest pain Endocrine: denies unexplained weight loss or gain Gastrointestinal: denies: abdominal pain, nausea +vomiting x 1 (phlegm) Genitourinary: denies: dysuria Rectal: denies no incontinence, no bleeding, no itching, no discharge Musculoskeletal: denies swelling, myaglia, muscle weakness Skin: denies: rash Neurological: denies: headache Hematological/Lymphatic: denies: easy bleeding or easy bruising Allergic/Immunologic: no urticaria, no allergic rhinitis, no anaphylaxis Psych: denies sadness or hopelessness, SI/HI Medications and Allergies Allergies Allergy/AdvReac Type Severity Reaction Status Date / Time No Known Allergies Allergy Verified 08/14/17 01:58 Home Medications Medication Instructions Recorded Confirmed Last Taken Type Atenolol [Tenormin] 25 mg PO DAILY #30 tablet 07/25/17 08/07/17 Unknown Rx Atorvastatin [Lipitor] 40 mg PO QHS #30 tablet 07/25/17 08/07/17 Unknown Rx amLODIPine [Norvasc] 10 mg PO DAILY #30 tablet 07/25/17 08/07/17 Unknown Rx Furosemide [Lasix TAB] 20 mg PO QDAY #30 tablet 10/23/17 Unknown Rx traMADol [Ultram 50 MG tab] 50 mg PO Q6HR PRN #12 tablet 10/23/17 Unknown Rx Active Meds: Active Medications Acetaminophen (Tylenol) 650 mg PO Q6H PRN PRN Reason: Non Cardiac Pain or Temp>100.5 Albuterol/Ipratropium (Duoneb *Not For Prn Use*) 1 ampul IH QIDRT [facility] Arformoterol Tartrate (Brovana Nebu) 15 mcg IH Q12HRT [facility] Benzonatate (Tessalon Perles) 100 mg PO Q8HR [facility] Budesonide (Pulmicort) 0.25 mg IH ONCE ONE Stop: 01/16/18 13:15 Guaifenesin (Mucinex Er) 600 mg PO BID [facility] Heparin Sodium (Porcine) (Heparin) 5,000 unit SUB-Q Q8HR [facility] Azithromycin 500 mg/ Sodium (Chloride) 250 mls @ 250 mls/hr IV Q24HR [facility] Ceftriaxone Sodium (Rocephin/Ns 1 Gm/50 Ml) 1 gm in 50 mls @ 100 mls/hr IV Q24HR [facility]; Protocol Methylprednisolone Sodium Succinate (Solu-Medrol) 80 mg IV Q8HR [facility] Metoclopramide HCl (Reglan) 10 mg IV Q8H PRN PRN Reason: Nausea And Vomiting Pseudoephedrine/Acetam/Chlorphenir (Robitussin Ac) 10 ml PO Q4H PRN PRN Reason: Cough Exam - Physical Exam Narrative exam: GEN: WDWN, ill appearing, NAD, Awake, Alert, Orientated x 3 HEENT: NCAT, EOMI, PERRL, OP Clear NECK: supple, no adenopathy, no thyromegaly, no JVD CVS/HEART: RRR, normal S1S2, pulses present bilaterally CHEST/LUNGS: bilateral wheezing, diminished bs bilateral, coarse bs bilater bases, Symmetrical chest expansion, good air entry bilaterally GI/Abdomen: soft, NTND, good bowel sounds, no guarding or rebound /Bladder: no suprapubic tenderness, no CVA or paraspinal tenderness EXT/Skin: leg edema and chronic bilateral venous leg stasis changes MSK: FROM x 4 Neuro: CN 2-12 grossly intact, no new focal deficits Psych: calm - Constitutional Vitals: Temp Pulse Resp BP Pulse Ox 97.8 F 73 26 H 132/66 93 01/16/18 09:06 01/16/18 11:01 01/16/18 11:01 01/16/18 11:01 01/16/18 11:01 Results - Labs CBC & Chem 7: 01/16/18 09:28 01/16/18 09:28 Labs: Abnormal lab results 01/16/18 01/16/18 01/16/18 Range/Units 09:28 09:28 09:28 Eos % (Auto) 8.6 H (0.0-4.3) % Eos # 0.6 H (0.0-0.4) K/mm3 D-Dimer 827.61 H (0-234) ng/mlDDU BUN 22 H (9-20) mg/dL Glucose 139 H (75-100) mg/dL Alkaline Phosphatase (35-129) units/L Total Creatine Kinase (55-170) units/L CK-MB (CK-2) (0.0-4.0) ng/mL Albumin (3.9-5) g/dL 01/16/18 Range/Units 09:28 Eos % (Auto) (0.0-4.3) % Eos # (0.0-0.4) K/mm3 D-Dimer (0-234) ng/mlDDU BUN (9-20) mg/dL Glucose (75-100) mg/dL Alkaline Phosphatase 149 H (35-129) units/L Total Creatine Kinase 227 H (55-170) units/L CK-MB (CK-2) 6.4 H (0.0-4.0) ng/mL Albumin 3.8 L (3.9-5) g/dL Assessment and Plan Mr. Johnson is a 82 yo man with a history of hypertension, leg edema, OA, asthma, radiographic (on prior v/q scan) COPD (pt denies copd and he says smoked), CKD 3 and provoked PE after surgery treated with Xarelto who pw sob w/ severe cough and wheezing -Acute COPD vs Asthma exacerbation: treat with iv steroids, duonebs around the clock, iv abx -Elevated D-Dimer, low pretest probability using Wells' criteria, +h/o PE: V/Q scan pending -Severe cough due to COPD: treat with antitussive -Chronic Bilateral leg edema, h/o short ble legs, suspect venous stasis with venous insufficiency. -CKD 3, Cr was 1.5 in 07/23/17 and decreased to 1.1 on 08/14/17 and last Cr was 1.5 on 10/22/17, now cr. 1.4: continue to monitor levels closely -Eosinophilia related to the above most likely -Hyperglycemia: check a1c, repeat levels in am -DVT prophylaxis: sq heparin
[2018-01-16] MEDS: MUCINEX ER PO SCH ×2 (13:29→22:03)
[2018-01-16] MEDS ORDERED: TESSALON PERLES PO ONE (13:29)
[2018-01-16] MEDS: TESSALON PERLES PO SCH ×2 (13:32→22:03)
[2018-01-16] MEDS: ROCEPHIN/NS 1 GM/50 ML 1 GM/50 ML BAG IV SCH (14:09)
--- NOTE | 2018-01-16 15:37 | Consultation ---
History of Present Illness Consult date: 01/16/18 Requesting physician: RONAN FUENTES Reason for consult: dyspnea History of present illness: 82 y/o male with acute respiratory failure. Etiology unknown. Per patient life long nonsmoker and no history of lung disease. Had a blood clot about 3-4 years ago and was treated here at [facility]. No sick contacts but patient is not a very good historian. Very fixated on the past and wrong doings by family members. Past History Past Medical History: hypertension, hyperlipidemia, other (DVT/PE) Past Surgical History: Other (knee surgery) Medications and Allergies Allergies Allergy/AdvReac Type Severity Reaction Status Date / Time No Known Allergies Allergy Verified 08/14/17 01:58 Home Medications Medication Instructions Recorded Confirmed Last Taken Type Atenolol [Tenormin] 25 mg PO DAILY #30 tablet 07/25/17 01/17/18 Unknown Rx Atorvastatin [Lipitor] 40 mg PO QHS #30 tablet 07/25/17 01/17/18 Unknown Rx amLODIPine [Norvasc] 10 mg PO DAILY #30 tablet 07/25/17 01/17/18 Unknown Rx Furosemide [Lasix TAB] 20 mg PO QDAY #30 tablet 10/23/17 01/17/18 Unknown Rx Active Meds: Active Medications Acetaminophen (Tylenol) 650 mg PO Q6H PRN PRN Reason: Non Cardiac Pain or Temp>100.5 Albuterol/Ipratropium (Duoneb *Not For Prn Use*) 1 ampul IH QIDRT [facility] Arformoterol Tartrate (Brovana Nebu) 15 mcg IH Q12HRT [facility] Benzonatate (Tessalon Perles) 100 mg PO Q8HR [facility] Last Admin: 01/16/18 13:32 Dose: 100 mg Budesonide (Pulmicort) 0.5 mg IH Q12HRT [facility] Guaifenesin (Mucinex Er) 600 mg PO BID [facility] Last Admin: 01/16/18 13:29 Dose: 600 mg Heparin Sodium (Porcine) (Heparin) 5,000 unit SUB-Q Q8HR [facility] Azithromycin 500 mg/ Sodium (Chloride) 250 mls @ 250 mls/hr IV Q24HR [facility] Ceftriaxone Sodium (Rocephin/Ns 1 Gm/50 Ml) 1 gm in 50 mls @ 100 mls/hr IV Q24HR [facility]; Protocol Last Admin: 01/16/18 14:09 Dose: 100 mls/hr Methylprednisolone Sodium Succinate (Solu-Medrol) 80 mg IV Q8H [facility] Metoclopramide HCl (Reglan) 10 mg IV Q8H PRN PRN Reason: Nausea And Vomiting Pseudoephedrine/Acetam/Chlorphenir (Robitussin Ac) 10 ml PO Q4H PRN PRN Reason: Cough Physical Examination Vital signs: Vital Signs Temp Pulse Resp BP Pulse Ox 97.8 F 85 24 130/88 97 01/16/18 09:06 01/16/18 09:06 01/16/18 09:06 01/16/18 09:06 01/16/18 09:06 General appearance: no acute distress, asleep Eyes: non-icteric Neck: supple Effort: normal Ascultation: Bilateral: clear, diminished breath sounds Percussion: Bilateral: not dull Tactile fremitus: Bilateral: normal Cardiovascular: regular rate and rhythm Gastrointestinal: normoactive bowel sounds, soft Results - Laboratory Findings CBC and BMP: 01/17/18 05:23 01/17/18 05:23 PT/INR, D-dimer PT 14.2 Sec. (12.2-14.9) 01/16/18 09:28 INR 1.05 (0.87-1.13) 01/16/18 09:28 D-Dimer 827.61 ng/mlDDU (0-234) H 01/16/18 09:28 Abnormal lab findings: Abnormal Labs 01/16/18 01/16/18 01/16/18 09:28 09:28 09:28 Eos % (Auto) 8.6 H Eos # 0.6 H D-Dimer 827.61 H BUN 22 H Glucose 139 H Alkaline Phosphatase Total Creatine Kinase CK-MB (CK-2) Albumin 01/16/18 09:28 Eos % (Auto) Eos # D-Dimer BUN Glucose Alkaline Phosphatase 149 H Total Creatine Kinase 227 H CK-MB (CK-2) 6.4 H Albumin 3.8 L - Diagnostic Findings Chest x-ray: image reviewed (as stated in plan but clear, with no acute disease state noted) Assessment and Plan 82 y/o male with Asthma vs COPD exacerbation. 1. CXR is clear but does show hyperinflation. Will add Inhaled Corticoid steroids. In asthmatics, should not treat with just long acting beta agonist alone. In case he has asthma this will help. 2. Ok with current dose of steroids 3 Supplemental O2 4. Will continue to follow
--- NOTE | 2018-01-16 15:38 | Nuclear Medicine Report ---
FINAL REPORT EXAM: NM LUNG SCAN PERF/VENT HISTORY: GAUTAM TECHNIQUE: Perfusion imaging of the lungs was performed in multiple planar projections. Ventilation images were obtained in the posterior projection during inhalation, equilibrium, and washout phases. Correlation with a chest x-ray dated 07/23/2017 was made. No current CXR is available for direct correlation. DOSE: 15.0 millicuries Xe-133 gas; 5.0 millicuries 99m Tc MAA given IV. PRIORS: None. Correlation to a CT chest 07/23/2017 was also made. FINDINGS: On perfusion imaging, there are defects involving the entire right middle lobe and the anterior basilar segment of the right lower lobe. No significant defects are identified in the left lung other than the outline of the ectatic aorta. The ventilation study demonstrates gas trapping in the lung bases, greater on the right than the left. No significant bullous changes are seen in these areas on prior CT. IMPRESSION: Intermediate probability V/Q scan with perfusion defects in the right middle lobe and anterior basilar segment of the right lower lobe are noted. However, no current chest x-ray is available for direct correlation.
[2018-01-16] MEDS: BROVANA NEBU IH SCH ×2 (15:50→20:51)
[2018-01-16] MEDS: DUONEB *Not for PRN Use IH SCH ×2 (15:50→20:51)
[2018-01-16] MEDS: ZITHROMAX 500 MG in NACL 0.9% 250ML 250 ML IV SCH (18:18)
[2018-01-16 18:44] LABS: Bilirubin,Urine NEG (Negative); Blood,Urine NEG (Negative); Color,Urine Yellow (Yellow); Mucus,Urine FEW /HPF; Protein,Urine <15 mg/dL mg/dL (Negative); Urobilinogen,Urine < 2.0 mg/dL (<2.0); WBC,Urine < 1.0 /HPF (0.0-6.0)
[2018-01-16] MEDS: PULMICORT IH SCH (20:50)
[2018-01-17 06:01] LABS: Hematocrit 36.3 % (35.5-45.6); Hemoglobin 11.9 gm/dl (11.8-15.2); Mean Corpuscular HGB Conc 33 % (32-34); Mean Corpuscular Hemoglobin 31 pg (28-32); Mean Corpuscular Volume 93 fl (84-94); Platelet Count 257 K/mm3 (140-440); Red Blood Count 3.91 M/mm3 (3.65-5.03); Red Cell Distribution Width 15.3 % (13.2-15.2)
[2018-01-17 06:28] LABS: Albumin 3.5 g/dL (3.9-5); Calcium 9.2 mg/dL (8.4-10.2)
[2018-01-17] MEDS: TESSALON PERLES PO SCH ×3 (06:31→21:10)
[2018-01-17] MEDS: BROVANA NEBU IH SCH ×2 (08:02→20:23)
[2018-01-17] MEDS: DUONEB *Not for PRN Use IH SCH ×4 (08:02→20:23)
[2018-01-17] MEDS: PULMICORT IH SCH ×2 (08:02→20:22)
[2018-01-17] MEDS: ZITHROMAX 500 MG in NACL 0.9% 250ML 250 ML IV SCH (11:58)
[2018-01-17] MEDS: MUCINEX ER PO SCH ×2 (12:04→21:10)
--- NOTE | 2018-01-17 12:17 | Progress Note ---
Assessment and Plan 82 y/o male with Asthma vs COPD exacerbation. 1. Change to PO prednisone 60 and would taper quickly (60x2, 40x2, 20x2, 10x2) 2. Z-pack, currently on Azithro IV, I think patient is ready for PO 3 Walk test to assess if there is a need for O2 4. No objection to discharge. I will arrange follow up with us and do spirometry to rule out obstructive lung disease. Would not send out on any long acting medication. Can give a script for PRN albuterol rescue inhaler. Will need teaching. Subjective Date of service: 01/17/18 Interval history: No acute events overnight. Feels much better this am. Upset about things that have happened to him the last 3-4 years. Off oxygen. Reviewed the V/Q report, per them intermediate with no CXR to compare, but a CXR was done earlier that morning? Objective Vital Signs - 12hr 01/17/18 01/17/18 01/17/18 04:12 06:31 08:03 Temperature 97.8 F Pulse Rate 70 Pulse Rate [ 75 Anterior Bilateral Throughout] Respiratory 20 20 Rate Respiratory 18 Rate [Anterior Bilateral Throughout] Blood Pressure 134/73 O2 Sat by Pulse 100 Oximetry 01/17/18 01/17/18 01/17/18 08:04 08:07 08:32 Temperature 98.0 F Pulse Rate 72 Pulse Rate [ 72 Anterior Bilateral Throughout] Respiratory 20 Rate Respiratory 20 Rate [Anterior Bilateral Throughout] Blood Pressure 144/79 O2 Sat by Pulse 99 98 Oximetry 01/17/18 01/17/18 11:49 12:00 Temperature Pulse Rate Pulse Rate [ 71 77 Anterior Bilateral Throughout] Respiratory Rate Respiratory 18 18 Rate [Anterior Bilateral Throughout] Blood Pressure O2 Sat by Pulse Oximetry Constitutional: no acute distress, alert Eyes: non-icteric ENT: oropharynx moist Neck: supple Ascultation: Bilateral: clear, diminished breath sounds Percussion: Bilateral: not dull Tactile fremitus: Bilateral: normal Cardiovascular: regular rate and rhythm Gastrointestinal: normoactive bowel sounds Integumentary: normal Extremities: no cyanosis Neurologic: normal mental status CBC and BMP: 01/17/18 05:23 01/17/18 05:23 ABG, PT/INR, D-dimer: PT/INR, D-dimer PT 14.2 Sec. (12.2-14.9) 01/16/18 09:28 INR 1.05 (0.87-1.13) 01/16/18 09:28 D-Dimer 827.61 ng/mlDDU (0-234) H 01/16/18 09:28 Abnormal lab findings: Abnormal Labs 01/16/18 01/16/18 01/16/18 09:28 09:28 09:28 WBC RDW Eos % (Auto) 8.6 H Eos # 0.6 H D-Dimer 827.61 H BUN 22 H Glucose 139 H Alkaline Phosphatase Total Creatine Kinase CK-MB (CK-2) Albumin 01/16/18 01/17/18 01/17/18 09:28 05:23 05:23 WBC 13.0 H RDW 15.3 H Eos % (Auto) Eos # D-Dimer BUN 26 H Glucose 143 H Alkaline Phosphatase 149 H 136 H Total Creatine Kinase 227 H CK-MB (CK-2) 6.4 H Albumin 3.8 L 3.5 L
[2018-01-17] MEDS: HEPARIN SUB-Q SCH ×3 (13:04→21:12)
--- NOTE | 2018-01-17 13:13 | Discharge Summary ---
Providers - Providers Date of Admission: 01/16/18 10:36 Date of discharge: 01/18/18 Attending physician: RONAN FUENTES 01/16/18 13:38 Consult to Physician [CONS] Routine Comment: DR PARRISH AWARE 1500 Consulting Provider: ANDI PARRISH Physician Instructions: Reason For Exam: ?copd vs asthma exacerbation and eosinophilia 01/17/18 12:01 Physical Therapy Evaluation and Treat [CONS] Urgent Comment: Reason For Exam: General weakness 01/17/18 12:02 Occupational Therapy Evaluate and Treat [CONS] Urgent Comment: Reason For Exam: General Weakness Primary care physician: COMPENSATION SPECIALIST Hospitalization Condition: Stable Hospital course: Mr. Johnson is a 82 yo man with a history of hypertension, leg edema, OA, asthma, radiographic (on prior v/q scan) COPD (pt denies copd and he says smoked), CKD 3 and provoked PE after surgery treated with Xarelto who pw sob w/ severe cough and wheezing -Acute COPD >asthma exacebation treat with iv steroids, duonebs around the clock , iv abx, off O2 and I checked pulse ox 95% RA -Elevated D-Dimer, low pretest probability using Wells' criteria, +h/o PE: V/Q scan immediate -Severe cough due to COPD: treat with antitussive -Chronic Bilateral leg edema, h/o short ble legs, suspect venous stasis with venous insufficiency. -CKD 3, Cr was 1.5 in 07/23/17 and decreased to 1.1 on 08/14/17 and last Cr was 1.5 on 10/22/17, now cr. 1.4: continue to monitor levels closely -Eosinophilia related to the above most likely -Hyperglycemia: checked a1c 5.9, repeat levels in am -DVT prophylaxis: sq heparin ok to discharge He declined SNF placement, "i changed my mind" Disposition: DC-01 TO HOME OR SELFCARE Time spent for discharge: 33 minutes Core Measure Documentation - Palliative Care Palliative Care/ Comfort Measures: Not Applicable - Core Measures Any of the following diagnoses?: none - VTE Discharge Requirements Deep Vein Thrombosis/Pulmonary Embolism Present on Admission: No Has pt received <5 days of overlap therapy or INR<2.0: No Anticoagulant overlap therapy prescribed at discharge: No Contraindication No Overlap Therapy order at DC: Not Indicated Exam - Physical Exam Narrative exam: GEN: WDWN, ill appearing, NAD, Awake, Alert, Orientated x 3 HEENT: NCAT, EOMI, PERRL, OP Clear NECK: supple, no adenopathy, no thyromegaly, no JVD CVS/HEART: RRR, normal S1S2, pulses present bilaterally CHEST/LUNGS: bilateral wheezing, diminished bs bilateral, much better, Symmetrical chest expansion, good air entry bilaterally GI/Abdomen: soft, NTND, good bowel sounds, no guarding or rebound /Bladder: no suprapubic tenderness, no CVA or paraspinal tenderness EXT/Skin: leg edema and chronic bilateral venous leg stasis changes MSK: FROM x 4 Neuro: CN 2-12 grossly intact, no new focal deficits Psych: calm - Constitutional Vitals: Temp Pulse Resp BP Pulse Ox 98.0 F 77 18 144/79 98 01/17/18 08:04 01/17/18 12:00 01/17/18 12:00 01/17/18 08:04 01/17/18 08:07 Plan Activity: other (no strenous activity until cleared by pcp) Diet: low salt Follow up with: PRIMARY CAREMD [Primary Care Provider] - 3-5 Days YESSI SZYMANSKI MD [Staff Physician] - 7 Days Prescriptions: Atorvastatin [Lipitor] 40 mg PO QHS #30 tablet amLODIPine [Norvasc] 10 mg PO DAILY #30 tablet Atenolol [Tenormin] 25 mg PO DAILY #30 tablet Azithromycin [Zithromax TAB] 250 mg PO QDAY #4 tablet Benzonatate [Tessalon Perles] 100 mg PO Q8HR #24 capsule Furosemide [Lasix TAB] 20 mg PO QDAY #30 tablet guaiFENesin/CODEINE [Robitussin AC] 10 ml PO Q4H PRN 3 Days oral.liqd PRN Reason: Cough Prednisone 1 dose PO DAILY 8 Days tab.ds.pk Ipratropium/Albuterol Sulfate [DUONEB *Not for PRN Use*] 1 ampul IH QIDRT PRN # 30 ampul.neb PRN Reason: Shortness Of Breath
[2018-01-17] MEDS: ROCEPHIN/NS 1 GM/50 ML 1 GM/50 ML BAG IV SCH (14:13)
--- NOTE | 2018-01-17 15:27 | Progress Note ---
Assessment and Plan Assessment and plan: Mr. Johnson is a 82 yo man who is Homeless (mainly living in his car) with a history of hypertension, leg edema, OA, asthma, radiographic (on prior v/q scan ) COPD (pt denies copd and he says smoked), CKD 3 and provoked PE after surgery treated with Xarelto who pw sob w/ severe cough and wheezing -Acute COPD > Asthma exacerbation: treat with iv steroids, duonebs around the clock, iv abx -Elevated D-Dimer, low pretest probability using Wells' criteria, +h/o PE: V/Q scan intermediate -Severe cough due to COPD: treat with antitussive -Chronic Bilateral leg edema, h/o short ble legs, suspect venous stasis with venous insufficiency. -CKD 3, Cr was 1.5 in 07/23/17 and decreased to 1.1 on 08/14/17 and last Cr was 1.5 on 10/22/17, now cr. 1.4: continue to monitor levels closely -Eosinophilia related to the above most likely -Hyperglycemia: check a1c, repeat levels in am -Leukocytosis due to iv steroids: repeat cbc in am -DVT prophylaxis: sq heparin Dispostion: continue inpatient care, SNF placement, await PT/OT History Interval history: Patient was seen and examined. Follow-up on current diagnosis. Overnight uneventful. Patient denies any chest pain, nausea/vomiting or severe headaches. Imaging, nursing note, chart, labs and old chart reviewed. Discussed with patient. Hospitalist Physical - Physical exam Narrative exam: GEN: WDWN, ill appearing, NAD, Awake, Alert, Orientated x 3 HEENT: NCAT, EOMI, PERRL, OP Clear NECK: supple, no adenopathy, no thyromegaly, no JVD CVS/HEART: RRR, normal S1S2, pulses present bilaterally CHEST/LUNGS: bilateral wheezing, diminished bs bilateral, much better, Symmetrical chest expansion, good air entry bilaterally GI/Abdomen: soft, NTND, good bowel sounds, no guarding or rebound /Bladder: no suprapubic tenderness, no CVA or paraspinal tenderness EXT/Skin: leg edema and chronic bilateral venous leg stasis changes MSK: FROM x 4 Neuro: CN 2-12 grossly intact, no new focal deficits Psych: calm - Constitutional Vitals: Temp Pulse Resp BP Pulse Ox 97.7 F 77 18 164/79 98 01/17/18 10:59 01/17/18 12:00 01/17/18 12:00 01/17/18 10:59 01/17/18 10:59 Results - Labs CBC & Chem 7: 01/17/18 05:23 01/17/18 05:23 Labs: Laboratory Last Values WBC 13.0 K/mm3 (4.5-11.0) H 01/17/18 05:23 RBC 3.91 M/mm3 (3.65-5.03) 01/17/18 05:23 Hgb 11.9 gm/dl (11.8-15.2) 01/17/18 05:23 Hct 36.3 % (35.5-45.6) 01/17/18 05:23 MCV 93 fl (84-94) 01/17/18 05:23 MCH 31 pg (28-32) 01/17/18 05:23 MCHC 33 % (32-34) 01/17/18 05:23 RDW 15.3 % (13.2-15.2) H 01/17/18 05:23 Plt Count 257 K/mm3 (140-440) 01/17/18 05:23 Lymph % (Auto) 23.8 % (13.4-35.0) 01/16/18 09:28 Alexander % (Auto) 7.3 % (0.0-7.3) 01/16/18 09:28 Eos % (Auto) 8.6 % (0.0-4.3) H 01/16/18 09:28 Baso % (Auto) 1.1 % (0.0-1.8) 01/16/18 09:28 Lymph # 1.7 K/mm3 (1.2-5.4) 01/16/18 09:28 Alexander # 0.5 K/mm3 (0.0-0.8) 01/16/18 09:28 Eos # 0.6 K/mm3 (0.0-0.4) H 01/16/18 09:28 Baso # 0.1 K/mm3 (0.0-0.1) 01/16/18 09:28 Seg Neutrophils % 59.2 % (40.0-70.0) 01/16/18 09:28 Seg Neutrophils # 4.3 K/mm3 (1.8-7.7) 01/16/18 09:28 PT 14.2 Sec. (12.2-14.9) 01/16/18 09:28 INR 1.05 (0.87-1.13) 01/16/18 09:28 APTT 28.9 Sec. (24.2-36.6) 01/16/18 09:28 D-Dimer 827.61 ng/mlDDU (0-234) H 01/16/18 09:28 Sodium 144 mmol/L (137-145) 01/17/18 05:23 Potassium 4.3 mmol/L (3.6-5.0) 01/17/18 05:23 Chloride 104.8 mmol/L (98-107) 01/17/18 05:23 Carbon Dioxide 23 mmol/L (22-30) 01/17/18 05:23 Anion Gap 21 mmol/L 01/17/18 05:23 BUN 26 mg/dL (9-20) H 01/17/18 05:23 Creatinine 1.5 mg/dL (0.8-1.5) 01/17/18 05:23 Estimated GFR 54 ml/min 01/17/18 05:23 BUN/Creatinine Ratio 17 % 01/17/18 05:23 Glucose 143 mg/dL (75-100) H 01/17/18 05:23 Hemoglobin A1c 5.9 % (4-6) 01/16/18 15:59 Calcium 9.2 mg/dL (8.4-10.2) 01/17/18 05:23 Magnesium 2.20 mg/dL (1.7-2.3) 01/16/18 09:28 Total Bilirubin 0.40 mg/dL (0.1-1.2) 01/17/18 05:23 Direct Bilirubin < 0.2 mg/dL (0-0.2) 01/16/18 09:28 AST 16 units/L (5-40) 01/17/18 05:23 ALT 9 units/L (7-56) 01/17/18 05:23 Alkaline Phosphatase 136 units/L (35-129) H 01/17/18 05:23 Total Creatine Kinase 227 units/L (55-170) H 01/16/18 09:28 CK-MB (CK-2) 6.4 ng/mL (0.0-4.0) H 01/16/18 09:28 CK-MB (CK-2) Rel Index 2.8 (0-4) 01/16/18 09:28 Troponin T < 0.010 ng/mL (0.00-0.029) 01/17/18 00:25 NT-Pro-B Natriuret Pep 630.7 pg/mL (0-900) 01/16/18 09:28 Total Protein 6.6 g/dL (6.3-8.2) 01/17/18 05:23 Albumin 3.5 g/dL (3.9-5) L 01/17/18 05:23 Albumin/Globulin Ratio 1.1 % 01/17/18 05:23 Urine Color Yellow (Yellow) 01/16/18 18:44 Urine Turbidity Clear (Clear) 01/16/18 18:44 Urine pH 5.0 (5.0-7.0) 01/16/18 18:44 Ur Specific [place] 1.011 (1.003-1.030) 01/16/18 18:44 Urine Protein <15 mg/dl mg/dL (Negative) 01/16/18 18:44 Urine Glucose (UA) Neg mg/dL (Negative) 01/16/18 18:44 Urine Ketones Neg mg/dL (Negative) 01/16/18 18:44 Urine Blood Neg (Negative) 01/16/18 18:44 Urine Nitrite Neg (Negative) 01/16/18 18:44 Urine Bilirubin Neg (Negative) 01/16/18 18:44 Urine Urobilinogen < 2.0 mg/dL (<2.0) 01/16/18 18:44 Ur Leukocyte Esterase Neg (Negative) 01/16/18 18:44 Urine WBC (Auto) < 1.0 /HPF (0.0-6.0) 01/16/18 18:44 Urine RBC (Auto) 2.0 /HPF (0.0-6.0) 01/16/18 18:44 Urine Mucus Few /HPF 01/16/18 18:44
[2018-01-18] MEDS: HEPARIN SUB-Q SCH ×2 (05:39→14:50)
[2018-01-18] MEDS: TESSALON PERLES PO SCH ×2 (05:39→14:50)
[2018-01-18 07:32] LABS: Hematocrit 38.1 % (35.5-45.6); Hemoglobin 12.4 gm/dl (11.8-15.2); Mean Corpuscular HGB Conc 33 % (32-34); Mean Corpuscular Hemoglobin 30 pg (28-32); Mean Corpuscular Volume 93 fl (84-94); Platelet Count 272 K/mm3 (140-440); Red Cell Distribution Width 15.3 % (13.2-15.2)
[2018-01-18 07:54] LABS: Calcium 8.9 mg/dL (8.4-10.2)
[2018-01-18] MEDS: PULMICORT IH SCH ×2 (08:30→20:37)
[2018-01-18] MEDS: BROVANA NEBU IH SCH ×2 (08:30→20:37)
[2018-01-18] MEDS: DUONEB *Not for PRN Use IH SCH ×4 (08:46→20:37)
[2018-01-18] MEDS ORDERED: ZITHROMAX PO SCH (10:00)
[2018-01-18] MEDS: MUCINEX ER PO SCH (11:35)
[2018-01-18] MEDS: ROCEPHIN/NS 1 GM/50 ML 1 GM/50 ML BAG IV SCH (11:38)
--- NOTE | 2018-01-18 13:31 | Progress Note ---
Assessment and Plan 82 y/o male with Asthma vs COPD exacerbation. No objection to discharge. Same recs as yesterday. Subjective Date of service: 01/18/18 Interval history: No acute events Objective Vital Signs - 12hr 01/18/18 01/18/18 01/18/18 03:40 07:26 11:03 Temperature 98.1 F 97.7 F 97.3 F L Pulse Rate 71 75 73 Respiratory 18 18 18 Rate Blood Pressure 131/72 139/79 134/70 O2 Sat by Pulse 96 97 97 Oximetry Constitutional: no acute distress, asleep Eyes: non-icteric ENT: oropharynx moist Neck: supple Effort: normal Ascultation: Bilateral: clear, diminished breath sounds Percussion: Bilateral: not dull Tactile fremitus: Bilateral: normal Cardiovascular: regular rate and rhythm Gastrointestinal: normoactive bowel sounds, soft Integumentary: normal Extremities: no cyanosis Neurologic: normal mental status CBC and BMP: 01/18/18 06:54 01/18/18 06:54 ABG, PT/INR, D-dimer: PT/INR, D-dimer PT 14.2 Sec. (12.2-14.9) 01/16/18 09:28 INR 1.05 (0.87-1.13) 01/16/18 09:28 D-Dimer 827.61 ng/mlDDU (0-234) H 01/16/18 09:28 Abnormal lab findings: Abnormal Labs 01/16/18 01/16/18 01/16/18 09:28 09:28 09:28 WBC RDW Eos % (Auto) 8.6 H Eos # 0.6 H D-Dimer 827.61 H Carbon Dioxide BUN 22 H Creatinine Glucose 139 H Alkaline Phosphatase Total Creatine Kinase CK-MB (CK-2) Albumin 01/16/18 01/17/18 01/17/18 09:28 05:23 05:23 WBC 13.0 H RDW 15.3 H Eos % (Auto) Eos # D-Dimer Carbon Dioxide BUN 26 H Creatinine Glucose 143 H Alkaline Phosphatase 149 H 136 H Total Creatine Kinase 227 H CK-MB (CK-2) 6.4 H Albumin 3.8 L 3.5 L 01/18/18 01/18/18 06:54 06:54 WBC 15.7 H RDW 15.3 H Eos % (Auto) Eos # D-Dimer Carbon Dioxide 21 L BUN 38 H Creatinine 1.6 H Glucose 148 H Alkaline Phosphatase Total Creatine Kinase CK-MB (CK-2) Albumin
[2018-01-18 15:41] VITALS: BP 134/77
--- NOTE | 2018-01-21 14:42 | Query- Renal Failure ---
Dear Jim Date:__01/21/2018 [employer] Worker/CDS:_beatriz/Pipe Phone#:____[phone] Exercise your independent professional judgment when responding to query. Questions asked do not imply a particular answer is desired or expected. We greatly appreciate your clarification on this issue. Clinical Documentation States: Mr. Johnson is a 82 yo man with a history of hypertension, leg edema, OA, asthma, radiographic (on prior v/q scan) COPD (pt denies copd and he says smoked), CKD 3 and provoked PE after surgery treated with Xarelto who pw sob w/ severe cough and wheezing. Taken from discharge summary () on 01/18/18. -Acute COPD >asthma exacebation treat with iv steroids, duonebs around the clock , iv abx, off O2 and I checked pulse ox 95% -Elevated D-Dimer, low pretest probability using Wells' criteria, +h/o PE: V/Q scan immediate -Severe cough due to COPD: treat with antitussive -Chronic Bilateral leg edema, h/o short ble legs, suspect venous stasis with venous insufficiency. -CKD 3, Cr was 1.5 in 07/23/17 and decreased to 1.1 on 08/14/17 and last Cr was 1.5 on 10/22/17, now cr. 1.4: -Eosinophilia related to the above most likely -Hyperglycemia: checked a1c 5.9, repeat levels in am -DVT prophylaxis: sq heparin Clinical Findings Show: 01/16/18 01/17/18 01/18/18 Creatinine 1.4 1.5 1.6 BUN 22 26 38 Bun/Cr ratio 16% 17 24 Please clarify if you mean: Acute Renal Failure with or due to: [ ] Tubular Necrosis [ ] Medullary Necrosis [ ] Vasomotor Nephropathy [ ] Shock Kidney [ ] Tubular Nephrosis [ ] Renal Tubular Stasis [ ] Cortical Necrosis [ ] Acute Renal Failure (unspecified) [ ] Lower Tubular Nephrosis [ ] Other: [x] Not Applicable Present on Admission: [ ] Yes (Y) [ ] Clinically undeterminable (W) [ x] No (N) Please also document response in your Progress Notes and/or Discharge Summary and indicate if the condition was present on admission. MTDD
== END 2018-01-18 18:40 | disposition home or self-care (01) | DRG 189 ==
LOC: ED 08:56 → 4A 10:36
PROVIDERS: ADMIT Internal Medicine; ATTEND Internal Medicine
DX: J96.00 Acute respiratory failure, unspecified whether with hypoxia or hypercapnia (principal); J45.901 Unspecified asthma with (acute) exacerbation; J44.1 Chronic obstructive pulmonary disease with (acute) exacerbation; I13.0 Hypertensive heart and chronic kidney disease with heart failure and stage 1 through stage 4 chronic kidney disease, or unspecified chronic kidney disease; N18.3 Chronic kidney disease, stage 3 (moderate); M19.90 Unspecified osteoarthritis, unspecified site; Z86.711 Personal history of pulmonary embolism; I87.2 Venous insufficiency (chronic) (peripheral); I87.8 Other specified disorders of veins; D72.1 Eosinophilia; R73.9 Hyperglycemia, unspecified; Z83.3 Family history of diabetes mellitus; Z82.49 Family history of ischemic heart disease and other diseases of the circulatory system; E78.5 Hyperlipidemia, unspecified; Z86.718 Personal history of other venous thrombosis and embolism; Z96.653 Presence of artificial knee joint, bilateral; Z59.0 Homelessness; T38.0X5A Adverse effect of glucocorticoids and synthetic analogues, initial encounter; Y92.89 Other specified places as the place of occurrence of the external cause; I50.9 Heart failure, unspecified
CPT/HCPCS: 36415; 71045; 78582; 80048; 80053; 80074; 81001; 82550; 82553; 83036; 83735; 83880; 84484; 85025; 85027; 85379; 85610; 85730; 87040; 93005; 93010; 94640; 94760; 96365; 96366; 96367; 96375; A9540; A9558; J0456; J0696; J1644; J2920; J2930; J3475; J7050